=== PATIENT | male | born 1985 | race African-American/Black ===

== ENCOUNTER 2016-07-22 22:06 | Emergency (ER) | payer OTHER ==
[~2016-07-22] VITALS: Ht 170.2 cm; Wt 77.0 kg
[2016-07-22 22:12] VITALS: Ht 170.2 cm; Wt 77.0 kg
--- NOTE | 2016-07-22 23:25 | ERD ---
ER Documentation Chief Complaint Date/Time DATE: 07/22/16 TIME: 23:23 Chief Complaint scalp laceration sustained after hitting against the wall, no loc HPI This is a 31-year-old male comes in because of a scalp laceration significant family needs and I will only jumped up. No loss of consciousness. No focal neurological complaints. ROS All systems reviewed and are negative except as per history of present illness. Allergies Allergies: Coded Allergies: No Known Allergy (Unverified , 07/22/16) Physical Exam Vitals Vital Signs Date Time Temp Pulse Resp B/P Pulse Ox O2 Delivery O2 Flow Rate FiO2 07/22/16 22:12 97.8 96 20 145/80 100 Physical Exam Const: [] Head: Atraumatic Eyes: Normal Conjunctiva ENT: Normal External Ears, Nose and Mouth. Neck: Full range of motion..~ No meningismus. Resp: Clear to auscultation bilaterally Cardio: Regular rate and rhythm, no murmurs Abd: Soft, non tender, non distended. Normal bowel sounds Skin: 2 cm laceration Back: No midline or flank tenderness Ext: No cyanosis, or edema Neur: Awake and alert Psych: Normal Mood and Affect Procedures/MDM Medical decision: 31-year-old male comes in with a scalp laceration. His were closed with kim. At this point clinically stable. Return in 5 days for staple removal Laceration Repair by me: Anesthesia: 1% lidocaine locally Location: Scalp Tendon/Joint/Nerves: No injury Foreign body: None detected after copious irrigation and exploration Technique: Skin kim Complexity: No subcutaneous sutures/mucosal repair/ edge excision Post Closure Length: 2 cm Patient's bleeding was easily controlled in the department and there is no indication of anemia. No evidence of compartment syndrome, neurologic injury, vascular injury, open joint, tendon laceration, or foreign body. Patient is appropriate for outpatient follow up. 48 hour wound check. Scar minimization instructions given. Departure Diagnosis: Primary Impression: Laceration Condition: Stable GLORIA KEITH July 22, 2016 23:25
== END 2016-07-22 23:42 | disposition home or self-care (01) ==
LOC: E/R 22:06
DX: S01.02XA Laceration with foreign body of scalp, initial encounter (principal); W22.8XXA Striking against or struck by other objects, initial encounter; Y92.9 Unspecified place or not applicable